=== PATIENT | female | born 1955 ===

== ENCOUNTER 2018-10-20 19:29 | Emergency (ER) | payer BC ==
--- NOTE | 2018-10-20 19:36 | UC ---
Back Pain HPI - HPI Summary HPI Summary: 63 yo female presents with left lower back pain. She tells me that on 10/18 she was working a lot outdoors and later that night noticed some left lower back discomfort and felt "feverish". She took ibuprofen and felt better. The next day on 10/19 felt better overall. Today she was cleaning out her office and doing a lot of lifting and later into the afternoon began to notice left lower back pain again. She took ibuprofen with little relief - prompting her visit to . Pain is worse with movement. Pain better with rest and slightly with ibuprofen. Denies SOB, chest pain, abdominal pain, n/v/d/c, dysuria, radiation of pain, numbness, tingling, saddle anesthesia, or loss of bowel/bladder control. No headache. - History of Current Complaint Stated Complaint: BACK PAIN Time Seen by Provider: 10/20/18 19:31 Hx Obtained From: Patient Onset/Duration: Gradual Onset Timing: Constant Severity Initially: Moderate Severity Currently: Moderate Pain Intensity: 7 Pain Scale Used: 0-10 Numeric - Allergies/Home Medications Allergies/Adverse Reactions: Allergies Allergy/AdvReac Type Severity Reaction Status Date / Time Penicillins Allergy Unknown Verified 10/20/18 19:40 Reaction Details Home Medications: Home Medications Ibuprofen TAB* [Advil TAB*] 200 mg PO Q6HR PRN 10/20/18 [History Confirmed 10/20] PMH/Surg Hx/FS Hx/Imm Hx - Additional Past Medical History Additional PMH: None - Surgical History Surgical History: None Surgery Procedure, Year, and Place: wisdom teeth removal - Family History Known Family History: Positive: None - Social History Occupation: Employed Full-time Lives: With Family Alcohol Use: None Substance Use Type: None Smoking Status (MU): Never Smoked Tobacco Review of Systems All Other Systems Reviewed And Are Negative: Yes Constitutional: Positive: Negative Skin: Positive: Negative Respiratory: Positive: Negative Cardiovascular: Positive: Negative Neurovascular: Positive: Negative Musculoskeletal: Positive: Other: - Back pain Neurological: Positive: Negative Psychological: Positive: Negative Physical Exam - Summary Physical Exam Summary: GENERAL: NAD. WDWN. No pain distress. SKIN: No rashes, sores, lesions, or open wounds. HEENT: Head: AT/NC Eyes: PERRLA. EOM intact. Conjunctiva clear without inflammation or discharge. Ears: Hearing grossly normal. TMs intact, no bulging, erythema, or edema. Nose: Nasal mucosa pink and moist. NTTP maxillary and frontal sinus. Throat: Posterior oropharynx without exudates, erythema, or tonsillar enlargement. Uvula midline. NECK: Supple. Nontender. No lymphadenopathy. CHEST: CTAB. No r/r/w. No accessory muscle use. Breathing comfortably and in no distress. CV: RRR. Without m/r/g. Pulses intact. Brisk cap refill. ABDOMEN: Soft. NTTP. No distention or guarding. No CVA tenderness. Bowel sounds present MSK: TTP over LEFT lumbar paraspinal muscles. No SI TTP. Pain with flexion and extension of spine and with twisting. Positive SLR on left for low back pain without radiation. Strength 5/5 B/L LEs including dorsiflexion and plantar flexion. FROM B/L LEs. No edema. NEURO: Alert. Sensations intact L3-S1 b/l PSYCH: Age appropriate behavior. Triage Information Reviewed: Yes Vital Signs: Vital Signs: Temp Pulse Resp BP Pulse Ox 100.2 F 109 16 152/85 99 10/20/18 19:33 10/20/18 19:33 10/20/18 19:33 10/20/18 19:33 10/20/18 19:33 Laboratory Tests 10/20/18 19:52 POC Urine Color Yellow POC Urine Clarity Clear POC Urine pH 5.5 POC Ur Specif [place] 1.020 POC Urine Protein Negative POC Ur Glucose (UA) Negative POC Urine Ketones 2+ A POC Urine Blood Trace-intact A POC Urine Nitrite Negative POC Urine Bilirubin Negative POC Urine Urobilinogen 0.2 POC U Leukocyte Esteras Negative Vital Signs Reviewed: Yes Back Pain Course/Dx - Course Course Of Treatment: UA without sign of any infection. Discussed with patient that her history and exam seem consistent with an MSK related low back injury/pain, however her temperature is slightly elevated today. She feels well otherwise and the rest of her exam was normal and revealed no source of potential infection. I discussed with her the possibility of a UTI or kidney stone, but she is having no urinary symptoms and pain/UA are not typical of a kidney stone at this time. I will treat her for an MSK related low back injury with flexeril and meloxicam. Advised to rest and apply heat/ice to the area to decrease pain. We discussed her elevated temperature and I advised her to monitor this at home, as well as her symptoms, and if her temperature or symptoms worsens - or if she develops new symptoms - to go to the ER or be rechecked immediately. She voiced understanding and is in agreement with the plan. I also discussed the above with Dr. Hester and he agrees with the plan of care. - Differential Dx/Diagnosis Provider Diagnosis: Low back pain Discharge - Sign-Out/Discharge Documenting (check all that apply): Patient Departure All imaging exams completed and their final reports reviewed: No Studies - Discharge Plan Condition: Stable Disposition: HOME Prescriptions: Cyclobenzaprine TAB* [Flexeril 10 MG TAB*] 10 mg PO BID PRN #10 tab PRN Reason: Pain Meloxicam [Mobic] 7.5 mg PO BID #14 tablet Patient Education Materials: Low Back Strain (ED), Acute Low Back Pain (ED) Referrals: No Primary Care Phys,NOPCP [Primary Care Provider] - Additional Instructions: If you develop a fever, shortness of breath, chest pain, new or worsening symptoms - please call your PCP or go to the ED immediately. Your blood pressure was high at todays visit. Please see your primary provider within 4 weeks for recheck and re-evaluation. 1) Your urine testing did not show any signs of infection. 2) Your exam seems most consistent with a low back musculoskeletal injury/pain. 3) Your temperature was slightly elevated at today's visit, but there were no signs of any clear infectious process and the rest of your exam is normal. Please monitor your symptoms and temperature and if they worsen or if you develop new symptoms - please be rechecked immediately or go to the ER 4) You were given FLEXERIL in the clinic to take tonight for your pain (as well as a prescription sent to your pharmacy). Flexeril is a muscle relaxer that should help your pain. One of the most common side effects of this medication is drowsiness - therefore, please do not take this during work or when you will be driving. 5) I have also prescribed a medication called MELOXICAM to take every 12 hours as needed for pain. Do not take this medication with ibuprofen/aleve/advil as they are related and may interact. - Billing Disposition and Condition Condition: STABLE Disposition: Home
[2018-10-20 19:39] VITALS: BP 152/85
[2018-10-20] MEDS ORDERED: Cyclobenzaprine TAB* 10 MG PO ONE (20:13)
== END 2018-10-20 20:44 | disposition home or self-care (01) ==
LOC: UCEAST 19:29
DX: M54.5 Low back pain (principal); Z88.0 Allergy status to penicillin
CPT/HCPCS: 81003; 99212; A9270-GY; G0463